=== PATIENT | female | born 1935 | race Caucasian/White ===

== ENCOUNTER 2018-04-13 22:09 | Observation (INO) | payer OTHER, BC ==
[~2018-04-13] VITALS: Ht 160 cm; Wt 60.1 kg
[~2018-04-13 22:09] MED LIST: CALCIUM600 MG PO; CYANOCOBALAM1000 MCG PO; Coumadin dosing per PO; DEXILANT60 MG PO; ERGOCALCIF50000 UNIT PO; MAGNESIUM250 M1 PO; TOVIAZ4 MG PO; VITAMIN B650 MG PO
[2018-04-13 22:57] LABS: HEMATOCRIT 37.9 % (36.0-46.0); HEMOGLOBIN 12.5 G/DL (11.9-15.5); MCH 27.7 PG (29.0-34.0); MCV 83.8 FL (83-99); PLATELET COUNT 223 K/uL (156-360); RBC DIS.WIDTH-CV 14.3 % (11.8-14.6); RED BLOOD COUNT 4.52 M/uL (3.80-5.20); WHITE BLOOD COUNT 7.1 K/uL (4.1-10.2)
[2018-04-13 23:03] LABS: INTER. NORMALIZED RATIO 2.3
[2018-04-13 23:05] LABS: CHLORIDE 108 mEq/L (99-109); POTASSIUM 3.9 mEq/L (3.7-5.4); PTT 35.7 SEC (25-37); SODIUM 143 mEq/L (136-147)
[2018-04-13 23:07] LABS: GLUCOSE 105 mg/dL (70-99)
[2018-04-13 23:10] LABS: CREATININE 0.9 mg/dL (0.6-1.3); GFR ESTIMATE (CALCULATED) > 59 mL/min/
[2018-04-13 23:11] LABS: UREA NITROGEN (BUN) 15 mg/dL (9-23)
[2018-04-13 23:46] LABS: TROP-I INTERPRETATION NEGATIVE; TROPONIN-I < 0.01 ng/mL (0.0-0.30)
[2018-04-14] MEDS ORDERED: XALATAN2.5 ML BOTH EYES (01:27)
[2018-04-14] MEDS ORDERED: XARELTO20 MG PO (01:27)
[2018-04-14] MEDS ORDERED: PRILOSEC20 MG PO (01:27)
[2018-04-14] MEDS ORDERED: ASCORBIC ACID500 M3 PO (01:28)
[2018-04-14] MEDS ORDERED: AZELASTINE137 MCG/0. BOTH NARES (01:28)
[2018-04-14 05:18] VITALS: BP 175/79
[2018-04-14 06:53] LABS: HEMATOCRIT 35.9 % (36.0-46.0); HEMOGLOBIN 11.6 G/DL (11.9-15.5); MCH 27.2 PG (29.0-34.0); MCHC 32.3 G/DL (30.0-36.0); MCV 84.3 FL (83-99); PLATELET COUNT 212 K/uL (156-360); RBC DIS.WIDTH-CV 14.5 % (11.8-14.6); RBC DIS.WIDTH-SD 44.2 % (39-53); RED BLOOD COUNT 4.26 M/uL (3.80-5.20); WHITE BLOOD COUNT 6.9 K/uL (4.1-10.2)
[2018-04-14 06:59] VITALS: BP 155/80
[2018-04-14 08:08] LABS: ALBUMIN 3.5 G/DL (3.2-4.8); ALKALINE PHOSPHATASE 46 IU/L (3-129); ALT (GPT) 9 IU/L (3-49); AST (GOT) 14 IU/L (2-34); CHLORIDE 110 MEQ/L (99-109); CREATININE 0.9 MG/DL (0.6-1.3); GFR ESTIMATE (CALCULATED) > 59 mL/min/; GLUCOSE 97 mg/dL (70-99); HDL CHOLESTEROL 42 MG/DL (Desirable>=50); LDL CHOLESTEROL 109 mg/dL (Desirable<100); NON-HDL CHOLESTEROL 136 mg/dL (Desirable<160); POTASSIUM 4.4 MEQ/L (3.7-5.4); SODIUM 147 MEQ/L (136-147); TOTAL BILIRUBIN 0.6 MG/DL (0.0-1.0); TOTAL CHOLESTEROL 178 mg/dL (Desirable<200); TRIGLYCERIDES 137 MG/DL (Normal: <150); UREA NITROGEN (BUN) 13 mg/dL (9-23)
[2018-04-14 11:01] VITALS: BP 182/85
[2018-04-14 14:59] VITALS: BP 140/70
[2018-04-14 19:15] VITALS: BP 130/54
[2018-04-15 00:40] VITALS: BP 122/54
[2018-04-15 04:26] VITALS: BP 118/50
[2018-04-15 07:22] VITALS: BP 112/66
[2018-04-15 10:28] LABS: HEMOGLOBIN A1c (GLYCOHEMOGLOB) 6.2 % (Below 5.7)
[2018-04-15 11:44] VITALS: BP 129/65
[2018-04-15] MEDS ORDERED: LISINOPRIL2.5 MG PO (12:42)
[2018-04-15 13:11] VITALS: BP 115/60
== END 2018-04-15 14:14 | disposition home or self-care (01) ==
LOC: EME 22:09 → EDOF 04-14 03:02 → 5SOUTH 04-14 03:02 → EDOF 04-14 03:02 → ENRESERV 04-14 03:05 → 5SOUTH 04-14 05:01
PROVIDERS: Emergency Medicine; Internal Medicine
PROC: B246ZZZ Ultrasonography of Right and Left Heart (ICD-10-PCS; principal; 2018-04-15)
DX: H81.10 Benign paroxysmal vertigo, unspecified ear (principal); I10 Essential (primary) hypertension; S05.12XA Contusion of eyeball and orbital tissues, left eye, initial encounter; I65.23 Occlusion and stenosis of bilateral carotid arteries; K22.70 Barrett's esophagus without dysplasia; Z86.711 Personal history of pulmonary embolism; M48.00 Spinal stenosis, site unspecified; J44.9 Chronic obstructive pulmonary disease, unspecified; Z82.49 Family history of ischemic heart disease and other diseases of the circulatory system; Z79.01 Long term (current) use of anticoagulants; I27.20 Pulmonary hypertension, unspecified
CPT/HCPCS: 70450; 70551; 80048; 80053; 80061; 83036; 84484; 85027; 85610; 85730; 93005; 93306; 93880; 99281; 99285; G0378; G8978 GP CI; G8979 GP CH; G8980 GP CI; J7030